=== PATIENT | female | born 1975 | race Caucasian/White ===

== ENCOUNTER 2020-11-17 20:31 | Emergency (ER) | payer SELFPAY ==
[~2020-11-17] VITALS: Ht 154.9 cm; Wt 66.7 kg
[2020-11-17 20:41] VITALS: Ht 154.9 cm; Wt 66.7 kg
[2020-11-17 21:46] VITALS: BP 120/46
== END 2020-11-17 21:47 | disposition home or self-care (01) ==
LOC: ED 20:31
DX: S06.0X0A Concussion without loss of consciousness, initial encounter (principal); W01.198A Fall on same level from slipping, tripping and stumbling with subsequent striking against other object, initial encounter; Y93.89 Activity, other specified; Y92.89 Other specified places as the place of occurrence of the external cause; Y99.8 Other external cause status